=== PATIENT | female | born 1945 ===

== ENCOUNTER 2018-10-02 08:45 | Day surgery (SDC) | payer OTHER ==
[~2018-10-02 08:45] MED LIST: CALAN80 MG; ENALAPRIL MALEA10 MG; PLAVIX75 MG
== END 2018-10-02 14:40 | disposition home or self-care (01) ==
LOC: AMB-ENDOS 08:45
DX: D12.4 Benign neoplasm of descending colon (principal); K64.2 Third degree hemorrhoids